=== PATIENT | female | born 1985 | race Caucasian/White ===

== ENCOUNTER 2022-06-25 14:09 | Emergency (ER) | payer OTHER ==
[2022-06-25 14:21] VITALS: BP 127/85
[2022-06-25] MEDS ORDERED: TORAdol 30 mg Injection IV ONE (14:29)
[2022-06-25] MEDS ORDERED: Sodium Chloride 0.9% 1000 ML 1,000 ML IV STA (14:29)
[2022-06-25] MEDS ORDERED: MORPHINE SULFATE 4 MG INJ IV ONE (14:29)
[2022-06-25] MEDS ORDERED: Zofran 4 MG/2 ML VIAL IV ONE (14:29)
--- NOTE | 2022-06-25 14:33 | ERPHSYRPT ---
- History of Present Illness Time Seen by Provider: 06/25/22 14:17 Historian: patient Exam Limitations: no limitations Patient Subjective Stated Complaint: pt here for lower abd pain that radiates into back started at 0800 this am Triage Nursing Assessment: pt alert, crying off and on, rocking back back and forth , abd soft resp easy, skin w/p/d Physician History: 37 years old female with history of kidney stones presented in the ER with chief complaint of bilateral flank pain started on check around 8 AM moderate to severe sharp with associated nausea and 1 episode of nonprojectile, nonbilious vomiting. Patient reports 10 out of 10 intensity pain, aggravated with palpation movements and is unable to find a comfortable spot. Also report difficulty urination and dark color urine. No fever or chills reported. Timing/Duration: hour(s) (6), constant, sudden, worse Activities at Onset: rest Quality: sharpness Abdominal Pain Onset Location: flank Severity of Pain-Max: severe Severity of Pain-Current: severe Modifying Factors: Worsens With: movement, palpation Associated Symptoms: nausea, vomiting Previous symptoms: same symptoms as today Allergies/Adverse Reactions: NKA Allergy (Verified 06/25/22 14:22) Hx Tetanus, Diphtheria Vaccination/Date Given: Yes Hx Influenza Vaccination/Date Given: No Hx Pneumococcal Vaccination/Date Given: No Immunizations Up to Date: Yes Travel Risk - International Travel Have you traveled outside of the country in past 3 weeks: No - Coronavirus Screening Are you exhibiting any of the following symptoms?: No - Vaccine Status Have you recieved a Covid-19 vaccination: Yes [employer]: [employer] - Review of Systems Constitutional: No Symptoms Eyes: No Symptoms Ears, Nose, & Throat: No Symptoms Respiratory: No Symptoms Cardiac: No Symptoms Abdominal/Gastrointestinal: Abdominal Pain, Nausea, Vomiting Genitourinary Symptoms: Dysuria Musculoskeletal: No Symptoms Skin: No Symptoms Neurological: No Symptoms Endocrine: No Symptoms Hematologic/Lymphatic: No Symptoms Immunological/Allergic: No Symptoms - Past Medical History Pertinent Past Medical History: Yes Neurological History: No Pertinent History ENT History: No Pertinent History Cardiac History: No Pertinent History Respiratory History: No Pertinent History Endocrine Medical History: No Pertinent History Musculoskeletal History: No Pertinent History GI Medical History: No Pertinent History History: No Pertinent History Psycho-Social History: Anxiety, Depression Female Reproductive Disorders: No Pertinent History Other Medical History: mild depression and anxiety.kidney stones - Past Surgical History Past Surgical History: Yes Neuro Surgical History: No Pertinent History Cardiac: No Pertinent History Respiratory: No Pertinent History Gastrointestinal: No Pertinent History Genitourinary: No Pertinent History Musculoskeletal: No Pertinent History Female Surgical History: Section Other Surgical History: fallopian tube removed on right side.breast augmentaiton - Social History Smoking Status: Current every day smoker How long have you smoked: 7yrs Exposure to second hand smoke: Yes Drug Use: none Patient Lives Alone: No - Female History Hx Last Menstrual Period: now Hx Now: No - Nursing Vital Signs Nursing Vital Signs: Initial Vital Signs Temperature 98.3 F 06/25/22 14:18 Pulse Rate 100 H 06/25/22 14:18 Respiratory Rate 20 06/25/22 14:18 Blood Pressure 127/85 06/25/22 14:18 O2 Sat by Pulse Oximetry 98 06/25/22 14:18 Pain Scale Pain Intensity 5 - Physical Exam General Appearance: no apparent distress, alert Eye Exam: PERRL/EOMI Ears, Nose, Throat Exam: normal ENT inspection Neck Exam: normal inspection, supple, full range of motion Respiratory Exam: normal breath sounds, lungs clear Cardiovascular Exam: regular rate/rhythm, normal heart sounds Gastrointestinal/Abdomen Exam: soft, normal bowel sounds, tenderness (Bilateral flank with positive CVA tenderness) Back Exam: normal inspection, normal range of motion, CVA tenderness Extremity Exam: normal inspection, normal range of motion, pelvis stable Neurologic Exam: alert, oriented x 3, cooperative Skin Exam: normal color SpO2 Interpretation: normal SpO2: 98 O2 Delivery: Room Air Ordered Tests: Active Orders 24 hr Category Date Time Status IV Insertion STAT Care 06/25/22 14:29 Active NPO (ED) STAT Care 06/25/22 14:29 Active ABDOMEN AND PELVIS W/0 CONTRAS [CT] Stat Exams 06/25/22 14:29 Completed CBC W DIFF Stat Lab 06/25/22 14:27 Completed CMP Stat Lab 06/25/22 14:27 Completed CULTURE,URINE Stat Lab 06/25/22 15:10 Received HCG QUALITATIVE,SERUM Stat Lab 06/25/22 14:59 Completed LIPASE Stat Lab 06/25/22 14:27 Completed UA W/RFX CULTURE Stat Lab 06/25/22 15:10 Completed Medication Summary Discontinued Medications Generic Name Dose Route Start Last Admin Trade Name Freq PRN Reason Stop Dose Admin Sodium Chloride 1,000 mls @ 999 mls/hr 06/25/22 14:29 06/25/22 16:02 Sodium Chloride 0.9% 1000 Ml IV 06/25/22 15:29 Infused .Q1H1M STA Infusion Sodium Chloride Confirm 06/25/22 14:37 Sodium Chloride 0.9% 1000 Ml Administered 06/25/22 14:38 Dose 1,000 mls @ ud .ROUTE .STK-MED ONE Ketorolac Tromethamine 30 mg 06/25/22 14:29 06/25/22 14:44 Ketorolac Tromethamine 30 Mg/Ml Inj IV 06/25/22 14:30 30 mg STAT ONE Administration Ketorolac Tromethamine Confirm 06/25/22 14:36 Ketorolac Tromethamine 30 Mg/Ml Inj Administered 06/25/22 14:37 Dose 30 mg .ROUTE .STK-MED ONE Morphine Sulfate 4 mg 06/25/22 14:29 06/25/22 14:44 Morphine Sulfate 4 Mg/Ml Injection IV 06/25/22 14:30 4 mg STAT ONE Administration Morphine Sulfate Confirm 06/25/22 14:37 Morphine Sulfate 4 Mg/Ml Injection Administered 06/25/22 14:38 Dose 4 mg .ROUTE .STK-MED ONE Ondansetron HCl 4 mg 06/25/22 14:29 06/25/22 14:45 Ondansetron Hcl 4 Mg/2 Ml Vial IV 06/25/22 14:30 4 mg STAT ONE Administration Ondansetron HCl Confirm 06/25/22 14:36 Ondansetron Hcl 4 Mg/2 Ml Vial Administered 06/25/22 14:37 Dose 4 mg .ROUTE .STK-MED ONE Oxycodone/Acetaminophen 1 tab 06/25/22 16:57 Oxycodone Hcl/Apap 5 Mg/325 Mg Tablet PO 06/25/22 16:58 STAT ONE Tamsulosin HCl 0.4 mg 06/25/22 16:47 06/25/22 16:51 Tamsulosin Hcl 0.4 Mg Cap PO 06/25/22 16:48 0.4 mg ONCE STA Administration Tamsulosin HCl Confirm 06/25/22 16:50 Tamsulosin Hcl 0.4 Mg Cap Administered 06/25/22 16:51 Dose 0.4 mg .ROUTE .STK-MED ONE Lab/Rad Data: Laboratory Result Diagrams 06/25/22 14:27 06/25/22 14:27 Laboratory Results 06/25/22 06/25/22 06/25/22 Range/Units 15:10 14:59 14:27 WBC (4.0-10.5) x10^3/uL RBC (4.1-5.4) x10^6/uL Hgb (12.0-16.0) g/dL Hct (35-47) % MCV (78-100) fL MCH (26-32) pg MCHC (32-36) g/dL RDW (11.5-14.0) % Plt Count (150-450) x10^3/uL MPV (7.5-11.0) fL Gran % (36.0-66.0) % Immature Gran % (Auto) (0.00-0.4) % Nucleat RBC Rel Count (0.00-0.1) % Eos # (Auto) (0-0.5) x10^3/uL Immature Gran # (Auto) (0.00-0.03) x10^3u/L Absolute Lymphs (auto) (1.0-4.6) x10^3/uL Absolute Monos (auto) (0.0-1.3) x10^3/uL Absolute Nucleated RBC (0.00-0.01) x10^3u/L Lymphocytes % (24.0-44.0) % Monocytes % (0.0-12.0) % Eosinophils % (0.00-5.0) % Basophils % (0.0-0.4) % Absolute Granulocytes (1.4-6.9) x10^3/uL Basophils # (0-0.4) x10^3/uL Sodium 139 (137-145) mmol/L Potassium 3.6 (3.5-5.1) mmol/L Chloride 108 H (98-107) mmol/L Carbon Dioxide 26 (22-30) mmol/L Anion Gap 9.5 (5-15) MEQ/L BUN 8 (7-17) mg/dL Creatinine 0.54 (0.52-1.04) mg/dL Estimated GFR > 60.0 ML/MIN Glucose 99 (74-106) mg/dL Calcium 10.0 (8.4-10.2) mg/dL Total Bilirubin 0.60 (0.2-1.3) mg/dL AST 27 (14-36) U/L ALT 14 (0-35) U/L Alkaline Phosphatase 45 (38-126) U/L Serum Total Protein 7.2 (6.3-8.2) g/dL Albumin 4.4 (3.5-5.0) g/dL Lipase 37 (23-300) U/L Serum , Qual NEGATIVE (Negative) Urinalys Dipstick Clnc MAIN LAB Urine Color YELLOW (YELLOW) Urine Appearance CLOUDY A (CLEAR) Urine pH 7.0 (5-6) Ur Specific Welcome 1.025 (1.005-1.025) POC Urine Protein Conf TRACE A (Negative) Urine Ketones NEGATIVE (NEGATIVE) Urine Nitrite NEGATIVE (NEGATIVE) Urine Bilirubin NEGATIVE (NEGATIVE) Urine Urobilinogen 0.2 (0-1) mg/dL Urine Leukocytes NEGATIVE (NEGATIVE) Urine WBC (Auto) NONE (0-5) /HPF Urine RBC (Auto) >101 A (0-2) /HPF U Epithel Cells (Auto) FEW (FEW) /HPF Urine Bacteria (Auto) RARE (NEGATIVE) /HPF Urine RBC LARGE A (0-5) Chapin/ul Urine Mucus (Auto) SLIGHT A (NEGATIVE) /HPF Ur Culture Indicated? YES Urine Glucose NEGATIVE (NEGATIVE) mg/dL 06/25/22 Range/Units 14:27 WBC 9.3 (4.0-10.5) x10^3/uL RBC 3.82 L (4.1-5.4) x10^6/uL Hgb 11.3 L (12.0-16.0) g/dL Hct 35.1 (35-47) % MCV 91.9 (78-100) fL MCH 29.6 (26-32) pg MCHC 32.2 (32-36) g/dL RDW 13.8 (11.5-14.0) % Plt Count 311 (150-450) x10^3/uL MPV 9.8 (7.5-11.0) fL Gran % 66.5 H (36.0-66.0) % Immature Gran % (Auto) 0.3 (0.00-0.4) % Nucleat RBC Rel Count 0.0 (0.00-0.1) % Eos # (Auto) 0.13 (0-0.5) x10^3/uL Immature Gran # (Auto) 0.03 (0.00-0.03) x10^3u/L Absolute Lymphs (auto) 2.10 (1.0-4.6) x10^3/uL Absolute Monos (auto) 0.80 (0.0-1.3) x10^3/uL Absolute Nucleated RBC 0.00 (0.00-0.01) x10^3u/L Lymphocytes % 22.6 L (24.0-44.0) % Monocytes % 8.6 (0.0-12.0) % Eosinophils % 1.4 (0.00-5.0) % Basophils % 0.6 (0.0-0.4) % Absolute Granulocytes 6.18 (1.4-6.9) x10^3/uL Basophils # 0.06 (0-0.4) x10^3/uL Sodium (137-145) mmol/L Potassium (3.5-5.1) mmol/L Chloride (98-107) mmol/L Carbon Dioxide (22-30) mmol/L Anion Gap (5-15) MEQ/L BUN (7-17) mg/dL Creatinine (0.52-1.04) mg/dL Estimated GFR ML/MIN Glucose (74-106) mg/dL Calcium (8.4-10.2) mg/dL Total Bilirubin (0.2-1.3) mg/dL AST (14-36) U/L ALT (0-35) U/L Alkaline Phosphatase (38-126) U/L Serum Total Protein (6.3-8.2) g/dL Albumin (3.5-5.0) g/dL Lipase (23-300) U/L Serum , Qual (Negative) Urinalys Dipstick Clnc Urine Color (YELLOW) Urine Appearance (CLEAR) Urine pH (5-6) Ur Specific Welcome (1.005-1.025) POC Urine Protein Conf (Negative) Urine Ketones (NEGATIVE) Urine Nitrite (NEGATIVE) Urine Bilirubin (NEGATIVE) Urine Urobilinogen (0-1) mg/dL Urine Leukocytes (NEGATIVE) Urine WBC (Auto) (0-5) /HPF Urine RBC (Auto) (0-2) /HPF U Epithel Cells (Auto) (FEW) /HPF Urine Bacteria (Auto) (NEGATIVE) /HPF Urine RBC (0-5) Chapin/ul Urine Mucus (Auto) (NEGATIVE) /HPF Ur Culture Indicated? Urine Glucose (NEGATIVE) mg/dL - Progress Progress: improved, pain not gone completely, re-examined Progress Note: 06/25/22 17:00 37 years old is evaluated for flank pain. She is given fluid bolus along with symptomatic treatment, feeling much better on reevaluation. Unremarkable lab work. No UTI. CT showed 3 mm left UVJ stone with partial obstruction. Given prophylactic antibiotics and will give Flomax and pain medications to go home and outpatient urology follow-up. Discussed signs symptoms of worsening needing return to ER which she seems understanding. Counseled pt/family regarding: lab results, diagnosis, need for follow-up, rad results - Departure Departure Disposition: Home Clinical Impression: Ureterolithiasis Condition: Stable Critical Care Time: No Referrals: ELIAN PLASCENCIA [Primary Care Provider] - Follow up/PCP as directed (1-2 days for reevaluation) WANG MCDOWELL [COURTESY STAFF] - Follow up/PCP as directed (1-2 days for reevaluation) Instructions: Severe Abdominal Pain, Adult (DC), Kidney Stones (DC) Additional Instructions: Take pain medications as needed. Drink plenty of fluids. Follow-up with primary care and urology for reevaluation. Return to ER for intractable pain, vomiting, fever chills, difficulty urination etc. Prescriptions: Hydrocodone/Acetaminophen [Hydrocodone-Acetamin 5-325 mg] 1 tab PO Q6HPRN PRN 3 Days #12 tablet MDD 4 PRN Reason: Pain Ciprofloxacin [Cipro 500 MG] 500 mg PO BID #14 tablet Tamsulosin HCl 0.4 mg [Flomax 0.4 MG] 0.4 mg PO DAILY #30 cap
[2022-06-25] MEDS ORDERED: TORAdol 30 mg Injection ONE (14:36)
[2022-06-25] MEDS ORDERED: Zofran 4 MG/2 ML VIAL ONE (14:36)
[2022-06-25] MEDS ORDERED: MORPHINE SULFATE 4 MG INJ ONE (14:37)
[2022-06-25] MEDS ORDERED: Sodium Chloride 0.9% 1000 ML 1,000 ML ONE (14:37)
[2022-06-25 14:39] LABS: Absolute Neutrophil Ct (ANC) 6.18 x10^3/uL (1.4-6.9); Basophil (Absolute #) 0.06 x10^3/uL (0-0.4); Eosinophil % 1.4 % (0.00-5.0); Eosinophil (Absolute #) 0.13 x10^3/uL (0-0.5); Hematocrit 35.1 % (35-47); Hemoglobin 11.3 g/dL (12.0-16.0); Lymphocytes % 22.6 % (24.0-44.0); Mean Cell Volume 91.9 fL (78-100); Mean Corpuscular Hemoglobin 29.6 pg (26-32); Mean Corpuscular Hgb Concent. 32.2 g/dL (32-36); Mean Platelet Volume 9.8 fL (7.5-11.0); Monocytes % 8.6 % (0.0-12.0); Neutrophil % 66.5 % (36.0-66.0); Platelet Count 311 x10^3/uL (150-450); Red Blood Count 3.82 x10^6/uL (4.1-5.4); Red Cell Distribution Width 13.8 % (11.5-14.0); White Blood Count 9.3 x10^3/uL (4.0-10.5)
[2022-06-25 14:51] LABS: ALBUMIN 4.4 g/dL (3.5-5.0); ALKALINE PHOSPHATASE 45 U/L (38-126); ANION GAP 9.5 MEQ/L (5-15); BLOOD UREA NITROGEN 8 mg/dL (7-17); CHLORIDE 108 mmol/L (98-107); Carbon Dioxide 26 mmol/L (22-30); Creatinine 1 0.54 mg/dL (0.52-1.04); EST GLOMERULAR FILTRATION RATE > 60.0 ML/MIN; Glucose 99 mg/dL (74-106); LIPASE 37 U/L (23-300); Potassium 3.6 mmol/L (3.5-5.1); SGOT/AST 27 U/L (14-36); SGPT/ALT 14 U/L (0-35); SODIUM 139 mmol/L (137-145); Total Protein 7.2 g/dL (6.3-8.2)
[2022-06-25 15:21] LABS: Appearance CLOUDY (CLEAR); Bilirubin NEGATIVE (NEGATIVE); Dipstick done @ ? MAIN LAB; Glucose NEGATIVE (NEGATIVE); Ketones NEGATIVE (NEGATIVE); Nitrite NEGATIVE (NEGATIVE); Protein,Urine Dip TRACE (Negative); RBC LARGE Ery/ul (0-5); Specific Gravity 1.025 (1.005-1.025); Urobilinogen 0.2 mg/dL (0-1)
[2022-06-25 15:23] LABS: Bacteria RARE /HPF (NEGATIVE); Epithelial Cells FEW /HPF (FEW); Mucus SLIGHT /HPF (NEGATIVE); RBC >101 /HPF (0-2); Urine Cultured Indicated? YES
--- NOTE | 2022-06-25 16:18 | XRAY ---
Indication: Bilateral flank pain. Kidney stones. Multiple contiguous axial images obtained through the abdomen and pelvis without contrast using renal stone protocol. Comparison: June 17, 2014 Lung bases are clear. Heart not enlarged. Again 3 mm left UVJ calculus. Proximal left ureter minimally prominent along with mild hydronephrosis consistent with partial obstructive uropathy. Right kidney demonstrates at least 4 nonobstructing punctate calculi. Noncontrasted stomach and bowel loops appear nonobstructed with normal appendix. New tampon in situ. No free fluid/air. Remaining liver, gallbladder, pancreas, spleen, adrenal glands, kidneys, ureters, bladder, uterus, and aorta are unremarkable for noncontrast exam. Osseous structures intact. Impression: 3 mm left UVJ calculus producing partial obstruction. Nonobstructing right renal punctate calculi.
[2022-06-25] MEDS ORDERED: Flomax 0.4 MG PO STA (16:47)
[2022-06-25] MEDS ORDERED: Flomax 0.4 MG ONE (16:50)
[2022-06-25] MEDS ORDERED: PERCOCET TABLET 5/325MG PO ONE (16:57)
[2022-06-25] MEDS ORDERED: PERCOCET TABLET 5/325MG ONE (17:03)
[2022-06-25 17:07] VITALS: PULSE 85; O2SAT 99
== END 2022-06-25 17:26 | disposition home or self-care (01) ==
LOC: ED 14:09
DX: N20.1 Calculus of ureter (principal); Z87.442 Personal history of urinary calculi; R10.9 Unspecified abdominal pain; R11.2 Nausea with vomiting, unspecified; Z72.0 Tobacco use; Z79.891 Long term (current) use of opiate analgesic
CPT/HCPCS: 36000; 36415; 74176; 80053; 81015; 83690; 84703; 85025; 87086; 96374; 96375; 99284; J1885; J2270; J2405; A9270-GY

== ENCOUNTER 2024-01-02 13:17 | Emergency (ER) | payer OTHER ==
[2024-01-02 14:01] VITALS: BP 112/80; PULSE 95; TEMP 97.8; O2SAT 97
--- NOTE | 2024-01-02 14:24 | ERPHSYRPT ---
- History of Present Illness Time Seen by Provider: 01/02/24 14:22 Source: patient Exam Limitations: no limitations Patient Subjective Stated Complaint: has been bleeding vaginally for 22 days and going through a super plus tampon approx every hour for the past couple of days and prior to that approx every 3 hours, had seen Wendi Leach 2 weeks ago and was placed on "something acid" for 5 days but it didn't work Triage Nursing Assessment: Pt brought to the ER by her mother, vitals wnl, rates pain as 8/10, pulses normal, skin n/w/d, states that her hemoglobin was 11 a couple of weeks ago, began feeling dizzy today, no difficulty breathing, has had this issue in 2019 and bled for over [address] Joshi placed her on a hormone for 10 days, doesn't appear to be in any distress Physician History: has been bleeding vaginally for 22 days and going through a super plus tampon approx every hour for the past couple of days and prior to that approx every 3 hours, had seen Wendi Leach 2 weeks ago and was placed on "mafenamic acid" for 5 days but it didn't work. states that her hemoglobin was 11 a couple of weeks ago, began feeling dizzy today, no difficulty breathing, has had this issue in 2019 and bled for over [address] Joshi placed her on a hormone for 10 days, doesn't appear to be in any distress Timing/Duration: week(s) (3-4 weeks), gradual onset Severity of Pain-Max: none Severity of Pain-Current: none Prior abdominal problems: none Sexual intercourse history: non-contributory Associated Symptoms: denies symptoms, No Allergies/Adverse Reactions: codeine Allergy (Verified 01/02/24 14:02) Home Medications: Ergocalciferol (Vitamin D2) [Vitamin D2] 1,250 mcg PO WEEKLY 01/02/24 [History] Phentermine HCl 37.5 mg PO DAILY 01/02/24 [History] Hx Tetanus, Diphtheria Vaccination/Date Given: Yes Hx Influenza Vaccination/Date Given: No Hx Pneumococcal Vaccination/Date Given: No Travel Risk - International Travel Have you traveled outside of the country in past 3 weeks: No - Emerging Infectious Disease Are you exhibiting symptoms associated with any current EIDs: Yes Symptoms: Abdominal Pain - Review of Systems Constitutional: No Fever, No Chills Eyes: No Symptoms Ears, Nose, & Throat: No Symptoms Respiratory: No Cough, No Dyspnea Cardiac: No Chest Pain, No Edema, No Syncope Abdominal/Gastrointestinal: No Abdominal Pain, No Nausea, No Vomiting, No Diarrhea Genitourinary Symptoms: Vaginal Bleeding, No Dysuria Musculoskeletal: No Back Pain, No Neck Pain Skin: No Rash Neurological: No Dizziness, No Focal Weakness, No Sensory Changes Psychological: No Symptoms Endocrine: No Symptoms All Other Systems: Reviewed and Negative - Past Medical History Pertinent Past Medical History: Yes Neurological History: No Pertinent History ENT History: No Pertinent History Cardiac History: No Pertinent History Respiratory History: No Pertinent History Endocrine Medical History: No Pertinent History Musculoskeletal History: No Pertinent History GI Medical History: No Pertinent History History: No Pertinent History Psycho-Social History: Anxiety, Depression Female Reproductive Disorders: No Pertinent History Other Medical History: mild depression and anxiety.kidney stones, abnormal menstrual bleeding - Past Surgical History Past Surgical History: Yes Neuro Surgical History: No Pertinent History Cardiac: No Pertinent History Respiratory: No Pertinent History Gastrointestinal: No Pertinent History Genitourinary: No Pertinent History Musculoskeletal: No Pertinent History Female Surgical History: Section Other Surgical History: fallopian tube removed on right side.breast augmentaiton - Female History Hx Now: No - Social History Smoking Status: Current every day smoker How long have you smoked: 7yrs Exposure to second hand smoke: Yes Drug Use: none Patient Lives Alone: No - Nursing Vital Signs Nursing Vital Signs: Initial Vital Signs Temperature 97.8 F 01/02/24 13:51 Pulse Rate 95 H 01/02/24 13:51 Blood Pressure 112/80 01/02/24 13:51 O2 Sat by Pulse Oximetry 97 01/02/24 13:51 Pain Scale Pain Intensity 8 - Physical Exam General Appearance: no apparent distress, alert Eye Exam: PERRL/EOMI, eyes nml inspection Ears, Nose, Throat Exam: normal ENT inspection, TMs normal, pharynx normal, moist mucous membranes Neck Exam: normal inspection, non-tender, supple, full range of motion Respiratory Exam: normal breath sounds, lungs clear, No respiratory distress Cardiovascular Exam: regular rate/rhythm, normal heart sounds, normal peripheral pulses Gastrointestinal/Abdomen Exam: soft, No tenderness, No mass Pelvic Exam: not done Rectal Exam: deferred Back Exam: normal inspection, normal range of motion, No CVA tenderness, No vertebral tenderness Extremity Exam: normal inspection, normal range of motion, pelvis stable Neurologic Exam: alert, oriented x 3, cooperative, custom stock maker II-XII nml as tested, normal mood/affect, sensation nml, No motor deficits Skin Exam: normal color, warm, dry Lymphatic Exam: No adenopathy SpO2: 97 - Course Nursing assessment & vital signs reviewed: Yes Ordered Tests: Active Orders 24 hr Category Date Time Status CBC W DIFF Stat Lab 01/02/24 14:25 Completed CMP Stat Lab 01/02/24 14:25 Completed Medication Summary Discontinued Medications Generic Name Dose Route Start Last Admin Trade Name Freq PRN Reason Stop Dose Admin Medroxyprogesterone Acetate 2.5 mg 01/02/24 14:07 01/02/24 14:34 Medroxyprogesterone Acet 2.5 Mg Tablet PO 01/02/24 14:08 2.5 mg DAILY STA Administration Lab/Rad Data: Laboratory Result Diagrams 01/02/24 14:25 01/02/24 14:25 Laboratory Results 01/02/24 01/02/24 Range/Units 14:25 14:25 WBC 9.7 (4.0-10.5) x10^3/uL RBC 4.12 (4.1-5.4) x10^6/uL Hgb 12.5 (12.0-16.0) g/dL Hct 38.0 (35-47) % MCV 92.2 (78-100) fL MCH 30.3 (26-32) pg MCHC 32.9 (32-36) g/dL RDW 13.3 (11.5-14.0) % Plt Count 300 (150-450) x10^3/uL MPV 10.3 (7.5-11.0) fL Gran % 72.2 H (36.0-66.0) % Immature Gran % (Auto) 0.2 (0.00-0.4) % Nucleat RBC Rel Count 0.0 (0.00-0.1) % Eos # (Auto) 0.14 (0-0.5) x10^3/uL Immature Gran # (Auto) 0.02 (0.00-0.03) x10^3u/L Absolute Lymphs (auto) 1.70 (1.0-4.6) x10^3/uL Absolute Monos (auto) 0.78 (0.0-1.3) x10^3/uL Absolute Nucleated RBC 0.00 (0.00-0.01) x10^3u/L Lymphocytes % 17.5 L (24.0-44.0) % Monocytes % 8.0 (0.0-12.0) % Eosinophils % 1.4 (0.00-5.0) % Basophils % 0.7 (0.0-0.4) % Absolute Granulocytes 7.01 H (1.4-6.9) x10^3/uL Basophils # 0.07 (0-0.4) x10^3/uL Sodium 140 (135-145) mmol/L Potassium 3.8 (3.5-5.1) mmol/L Chloride 109 H (98-107) mmol/L Carbon Dioxide 24 (22-30) mmol/L Anion Gap 11.5 (5-15) MEQ/L BUN 7 (7-17) mg/dL Creatinine 0.60 (0.52-1.04) mg/dL Estimated GFR 118.5 ML/MIN Glucose 101 (74-106) mg/dL Calcium 10.9 H (8.4-10.2) mg/dL Total Bilirubin 0.50 (0.2-1.3) mg/dL AST 12 L (14-36) U/L ALT 13 (0-35) U/L Alkaline Phosphatase 56 (38-126) U/L Serum Total Protein 7.5 (6.3-8.2) g/dL Albumin 4.5 (3.5-5.0) g/dL - Progress Progress: unchanged Air Movement: good Counseled pt/family regarding: lab results, diagnosis, need for follow-up Medical Desision Making - Diagnostic Testing Diagnostic test were ordered, analyzed, and reviewed by me: Yes - Risk of complications Low Risk: Low risk of morbidity from additional dx testing or treatment - Departure Departure Disposition: Home Clinical Impression: Dysfunctional uterine bleeding Condition: Stable Critical Care Time: No Referrals: ELIAN JOSHI [Primary Care Provider] - Follow up/PCP as directed Instructions: Heavy Periods (DC) Additional Instructions: Discharge/Care Plan ROMDEA MARGUERITE was seen on 01/02/24 in the Emergency Room. The patient was counseled regarding Diagnosis,Lab results, Imaging studies, need for follow up and when to return to the Emergency Room. Prescriptions given: Discharge Note I have spoken with the patient and/or caregivers. I have explained the patient's condition, diagnosis and treatment plan based on the information available to me at this time. I have answered the patient's and/or caregiver's questions and addressed any concerns. The patient and/or caregivers have as good understanding of the patient's diagnosis, condition and treatment plan as can be expected at this point. The vital signs have been stable. The patient's condition is stable and appropriate for discharge from the emergency department. The patient will pursue further outpatient evaluation with the primary care p lucho or other designated or consulting physician as outlined in the discharge instructions. The patient and/or caregivers are agreeable to this plan of care and follow-up instructions have been explained in detail. The patient and/or caregivers have received these instruction. The patient/and or caregivers are aware that any significant change in condition or worsening of symptoms should prompt an immediate return to this or the closest emergency department or call 911. DEA CUETO was seen on 01/02/24 n the Emergency Room. At that time you were treated for an emergent condition, during your visit Laboratory, Radiology and/or other procedures may have been ordered. It is very important that you follow-up with your Primary Care Physician ELIAN JOSHI within the next 24-48 hours to review your Emergency Room visit and the final results of testing that was ordered. Some test results such as Urine Cultures, Blood Cultures, and other cultures if ordered will not be finalized for 24-48 hours. If you do not have a Primary Care Provider please call the medical records department at [phone] ext [phone] to obtain a copy of your results or you may sign into our patient portal to obtain these results by visiting us @ [email or web address] and completing the following steps: 1. Click on the Patient Portal link 2. Click the Patient Self Enrollment Link to complete the enrollment form and entering your 3. Once the enrollment form is completed you will receive an email with a temporary ID and password at the email address you provided. 4. Next choose a user name and password. Your user name must be at least 4 characters long and your password must be at least 4 characters long. 5. Choose a security question from the list and provide your answer to the question. If you already have signed into the Health Portal you may access your Health Care Information 15/03 by the following steps: 1. Login to our website @ [email or web address] 2. Enter your original user name and password. FAQS The [facility] Health Portal is an online tool that contains your Lab Results, Radiology Reports, Visit History, Discharge Instructions and Health Summary Lab and Radiology Results will not be available for 72 hours on the portal. The Portal is a secure site, passwords are encryted and URLs are re-written so they cannot be copied and pasted. You and authorized family members are the only ones who can access your Portal. Also there is a timeout feature that protects your information if you leave the Portal page open. If you have technical difficulty please use the Contact Us link on the page this will allow you to submit any questions you have regarding the Portal or you may contact the Medical Record Department at [phone]. Prescriptions: Mefenamic Acid 250 mg PO TID #15 cap Medroxyprogesterone Acet [[id number] mg] 10 mg PO DAILY #30 tablet
[2024-01-02 14:34] LABS: Absolute Neutrophil Ct (ANC) 7.01 x10^3/uL (1.4-6.9); BASOPHIL % 0.7 % (0.0-0.4); Basophil (Absolute #) 0.07 x10^3/uL (0-0.4); Eosinophil % 1.4 % (0.00-5.0); Eosinophil (Absolute #) 0.14 x10^3/uL (0-0.5); Hemoglobin 12.5 g/dL (12.0-16.0); IMMATURE GRAN # 0.02 x10^3u/L (0.00-0.03); IMMATURE GRAN % 0.2 % (0.00-0.4); Lymphocytes % 17.5 % (24.0-44.0); Mean Cell Volume 92.2 fL (78-100); Mean Corpuscular Hemoglobin 30.3 pg (26-32); Mean Corpuscular Hgb Concent. 32.9 g/dL (32-36); Mean Platelet Volume 10.3 fL (7.5-11.0); Monocyte (Absolute #) 0.78 x10^3/uL (0.0-1.3); Neutrophil % 72.2 % (36.0-66.0); Platelet Count 300 x10^3/uL (150-450); Red Blood Count 4.12 x10^6/uL (4.1-5.4); Red Cell Distribution Width 13.3 % (11.5-14.0); White Blood Count 9.7 x10^3/uL (4.0-10.5)
[2024-01-02] MEDS: Provera 2.5 MG PO STA (14:34)
[2024-01-02 14:45] LABS: ALBUMIN 4.5 g/dL (3.5-5.0); ANION GAP 11.5 MEQ/L (5-15); BILIRUBIN,TOTAL 0.5 mg/dL (0.2-1.3); Calcium 10.9 mg/dL (8.4-10.2); Creatinine 1 0.6 mg/dL (0.52-1.04); EST GLOMERULAR FILTRATION RATE 118.5 ML/MIN; Potassium 3.8 mmol/L (3.5-5.1); Total Protein 7.5 g/dL (6.3-8.2)
== END 2024-01-02 15:15 | disposition home or self-care (01) ==
LOC: ED 13:17
DX: N93.8 Other specified abnormal uterine and vaginal bleeding (principal); R42 Dizziness and giddiness; Z72.0 Tobacco use
CPT/HCPCS: 36415; 80053; 85025; 99282; A9270-GY